=== PATIENT | female | born 1985 | race African-American/Black ===

== ENCOUNTER 2018-04-05 13:13 | Emergency (ER) | payer MEDICAID ==
[~2018-04-05] VITALS: Ht 162.6 cm; Wt 78.5 kg
[~2018-04-05 13:13] MED LIST: AUGMENTIN 875-1 EAC1 ORAL; IBUPROFEN600 MG ORAL; NORCO 5-325 TA1 EACH ORAL
--- NOTE | 2018-04-05 13:41 | Emergency Room Report ---
History of Present Illness General Chief Complaint: Skin Rash/Abscess Source: Patient Present Illness HPI Patient presents with his younger son who appears to have possible ringworm in the scalp area Patient had a lesion to the left lower leg Circular Patient's of the area one to 2 days ago There was some itching to the area Denies any spread denies any chest pain or shortness of breath and eyes any fevers or chills Patient also had 2 areas on the right hand there were somewhat different and reports that the areas in the right hand have come and gone over the past several years Allergies: Coded Allergies: IODINE (Verified Allergy, Unknown, 04/05/18) Patient History Past Medical History: see triage record Pertinent Family History: none Reviewed Nursing Documentation: PMH: Agreed; PSxH: Agreed Nursing Documentation-PMH Past Medical History: No Stated History Review of Systems All Other Systems: negative except mentioned in HPI Physical Exam Vital Signs Date Time Temp Pulse Resp B/P (MAP) Pulse Ox O2 Delivery O2 Flow Rate FiO2 04/05/18 13:22 98.4 95 18 126/79 96 Room Air 98.4 Sp02 EP Interpretation: reviewed, normal General Appearance: well appearing, no apparent distress Head: normocephalic, atraumatic Eyes: bilateral eye PERRL, bilateral eye EOMI ENT: hearing grossly normal, normal pharynx, TMs + canals normal, uvula midline Neck: full range of motion, supple, no meningismus, no bony tend Respiratory: lungs clear, normal breath sounds Cardiovascular #1: regular rate, rhythm Gastrointestinal: non tender, soft Musculoskeletal: normal inspection Neurologic: alert, oriented x3, responsive Skin: warm/dry - There was also to somewhat nonspecific raised small rash over the dorsal hand possible insect bite no obvious fluctuance, other - Circular area with mild demarcated region on the lower extremity approximately half centimeter by half centimeter no raised appearance no fluctuance no dermatomal fashion appearance Lymphatic: no adenopathy Medical Decision Making Diagnostic Impression: Primary Impression: Rash and other nonspecific skin eruption ER Course Patient presents with a localized nonspecific lesion in the lower leg appears to be possibly healed ring warm region no obvious infection at this time does not appear active and patient stable for close outpatient follow-up Last Vital Signs Date Time Temp Pulse Resp B/P (MAP) Pulse Ox O2 Delivery O2 Flow Rate FiO2 04/05/18 13:22 98.4 95 18 126/79 96 Room Air 98.4 Status: unchanged Disposition: HOME, SELF-CARE Condition: Stable Patient Instructions: Rash Additional Instructions: Patient is provided with the discharge instructions notified to follow up with primary doctor in the next 2-3 days otherwise return to the er with any worsening symptoms. Please note that this report is being documented using [employer] technology. This can lead to erroneous entry secondary to incorrect interpretation by the dictating instrument. Vera Barajas DO Apr 05, 2018 13:41
[2018-04-05] MEDS ORDERED: CLOTRIMAZOLE15 GM TOPIC (13:45)
[2018-04-05 14:00] VITALS: BP 126/79
== END 2018-04-05 14:05 | disposition home or self-care (01) ==
LOC: EMR 13:40
DX: R21 Rash and other nonspecific skin eruption (principal)
CPT/HCPCS: 99282

== ENCOUNTER 2018-04-23 18:29 | Emergency (ER) | payer MEDICAID, MEDICARE ==
[~2018-04-23] VITALS: Ht 162.6 cm; Wt 78.5 kg
[~2018-04-23 18:29] MED LIST changes: +CLOTRIMAZOLE15 GM TOPIC
[2018-04-23 18:40] VITALS: BP 123/81
--- NOTE | 2018-04-23 18:59 | Emergency Room Report ---
History of Present Illness General Chief Complaint: Skin Rash/Abscess Source: Patient Present Illness HPI patient is a 32-year-old female with no significant past medical history here complaining of 3 weeks of very pruritic rash on his right hand starting on the left spaces. Reports the pruritus is worse at night. Patient has been scratching the lesions so much now that are blistering. Also complains of a pruritic rash on the left ankle. Denies any other lesion. His pain, fever, chills, or other associated symptoms. Has not tried any topical creams. Denies recent travel or camping. Allergies: Coded Allergies: IODINE (Verified Allergy, Unknown, 04/05/18) Patient History Past Medical History: see triage record Past Surgical History: none Last Menstrual Period: NA Now: No : 4 Para: 3 Immunizations: UTD Reviewed Nursing Documentation: PMH: Agreed; PSxH: Agreed Nursing Documentation-PMH Past Medical History: No History, Except For Review of Systems All Other Systems: negative except mentioned in HPI Physical Exam Vital Signs Date Time Temp Pulse Resp B/P (MAP) Pulse Ox O2 Delivery O2 Flow Rate FiO2 04/23/18 18:33 99.2 74 18 123/81 99 Room Air 99.1 Sp02 EP Interpretation: reviewed, normal General Appearance: normal inspection, well appearing, no apparent distress, alert Head: normocephalic, atraumatic Eyes: bilateral eye normal inspection, bilateral eye PERRL ENT: normal ENT inspection, hearing grossly normal, normal pharynx Neck: normal inspection, full range of motion, supple Respiratory: normal inspection, chest non-tender, lungs clear, normal breath sounds, no rhonchi Cardiovascular #1: normal inspection, regular rate, rhythm, no murmur Gastrointestinal: normal inspection, soft Rectal: deferred Genitourinary: deferred Musculoskeletal: normal inspection, back normal, other - tinea corporis left ankle, scabies on right hand Neurologic: normal inspection, alert, oriented x3 Psychiatric: normal inspection, judgement/insight normal Skin: normal color, warm/dry, rash - tinea corporis left ankle, scabies right hand Lymphatic: normal inspection, no adenopathy Medical Decision Making PA Attestation All diagnoses and treatment plans were reviewed and discussed with my supervising physician Diagnostic Impression: Primary Impression: Tinea corporis Additional Impression: Scabies ER Course patient is a 32-year-old female with no significant past medical history here complaining of 3 weeks of very pruritic rash on his right hand starting on the left spaces. Reports the pruritus is worse at night. Patient has been scratching the lesions so much now that are blistering. Also complains of a pruritic rash on the left ankle. Denies any other lesion. His pain, fever, chills, or other associated symptoms. Has not tried any topical creams. Denies recent travel or camping. Ddx considered but are not limited to tinea corporis, eczema, scabies Vital signs: are WNL, pt. is afebrile H&PE are most consistent with tinea corporis, scabies ORDERS: permetherin, lotrisione ED INTERVENTIONS: None required at this time. DISCHARGE: At this time pt. is stable for d/c to home. Will provide printed patient care instructions, and any necessary prescriptions. Care plan and follow up instructions have been discussed with the patient prior to discharge. Last Vital Signs Date Time Temp Pulse Resp B/P (MAP) Pulse Ox O2 Delivery O2 Flow Rate FiO2 04/23/18 18:33 99.2 74 18 123/81 99 Room Air 99.1 Disposition: HOME, SELF-CARE Condition: Stable Scripts Clotrimazole/Betamethasone Dip* (LOTRISONE CREAM*) 15 Gm Cream..g. 1 GM TP TWICE A DAY for 10 Days, #1 TUBE 0 Refills Prov: Savage Reese P.AAlison 04/23/18 Permethrin (PERMETHRIN) 1 Gm Liquid 1 GM TP ONCE for 7 Days, #1 TUBE Prov: Savage Reese.AAlison 04/23/18 Patient Instructions: Body Ringworm, Scabies, Pediatric Additional Instructions: follow up with pcp for further evaluation. Savage Reese Apr 23, 2018 18:59
[2018-04-23] MEDS ORDERED: LOTRISONE CREAM15 GM TP (19:01)
[2018-04-23] MEDS ORDERED: PERMETHRIN1 GM TP (19:01)
[2018-04-23 19:16] VITALS: BP 111/71
== END 2018-04-23 19:17 | disposition home or self-care (01) ==
LOC: EMR 19:11
DX: B35.4 Tinea corporis (principal); B86 Scabies
CPT/HCPCS: 99283

== ENCOUNTER 2019-04-06 00:29 | Emergency (ER) | payer MEDICARE, OTHER ==
[~2019-04-06] VITALS: Ht 162.6 cm; Wt 68.0 kg
[~2019-04-06 00:29] MED LIST changes: +LOTRISONE CREAM15 GM TP; +PERMETHRIN1 GM TP
[2019-04-06 00:41] VITALS: BP 125/86
--- NOTE | 2019-04-06 00:44 | NUR ---
ED Nurse Note: Pt ambulated to ED from home c/o swelling, itching and tingling in left hand and fingers r/t cleaning shrimp. Pt is allergic to shellfish and doesn't eat it but cleaning the shrimp caused this tingling and swelling in her hand. VSS
[2019-04-06] MEDS ORDERED: BENADRYL25 MG ORAL (00:54)
--- NOTE | 2019-04-06 00:55 | Emergency Room Report ---
History of Present Illness General Chief Complaint: Allergic Reaction Source: Patient Present Illness HPI Is a 33-year-old female with a history of allergy to shrimp. She was cleaning strip and she developed itching and swelling to her left ring finger. A was itching going up her left arm also. This occurred just prior to arrival. Better now. Did not take it before. No wrist or complaint. Denies any other injury. Allergies: Coded Allergies: IODINE (Verified Allergy, Unknown, 04/05/18) Uncoded Allergies: SHELLFISH (Allergy, Unknown, 04/06/19) Patient History Past Medical History: see triage record, old chart reviewed Past Surgical History: other Pertinent Family History: none Social History: Denies: smoking Last Menstrual Period: na Now: No Immunizations: other Reviewed Nursing Documentation: PMH: Agreed; PSxH: Agreed Nursing Documentation-PMH Past Medical History: No Stated History Review of Systems Eye: Denies: eye pain, blurred vision ENT: Denies: ear pain, nose congestion, throat swelling Respiratory: Denies: cough, shortness of breath Cardiovascular: Denies: chest pain, palpitations Gastrointestinal: Denies: abdominal pain, diarrhea, nausea, vomiting Musculoskeletal: Denies: back pain, joint pain Skin: Denies: rash Neurological: Denies: headache, numbness Endocrine: Denies: increased thirst, increased urine Hematologic/Lymphatic: Denies: easy bruising All Other Systems: negative except mentioned in HPI Physical Exam Vital Signs Date Time Temp Pulse Resp B/P (MAP) Pulse Ox O2 Delivery O2 Flow Rate FiO2 04/06/19 00:32 97.9 60 18 131/87 (102) 99 Room Air Vitals normal Sp02 EP Interpretation: reviewed, normal General Appearance: well appearing, no apparent distress, alert Head: normocephalic, atraumatic Eyes: bilateral eye PERRL, bilateral eye EOMI ENT: hearing grossly normal, normal pharynx Neck: full range of motion, supple, no meningismus Respiratory: chest non-tender, lungs clear, normal breath sounds Cardiovascular #1: regular rate, rhythm, no murmur Gastrointestinal: normal bowel sounds, non tender, no mass, no organomegaly, no bruit, non-distended Musculoskeletal: back normal, gait/station normal, normal range of motion, other - Mild edema to left ring finger. Psychiatric: mood/affect normal Medical Decision Making Diagnostic Impression: Primary Impression: Allergic reaction Qualified Codes: T78.40XA - Allergy, unspecified, initial encounter ER Course Presents with allergic reaction. No evidence of systemic spread. Better after medication. Will discharge home. Last Vital Signs Date Time Temp Pulse Resp B/P (MAP) Pulse Ox O2 Delivery O2 Flow Rate FiO2 04/06/19 00:41 97.9 80 18 125/86 99 Room Air Status: improved Disposition: HOME, SELF-CARE Condition: Stable Scripts Diphenhydramine Hcl* (BENADRYL*) 25 Mg Capsule 50 MG ORAL Q6H PRN for Itching, #30 CAP Prov: Cristofer Dowling MD 04/06/19 Patient Instructions: Food Allergy Additional Instructions: Follow up your doctor in 7 days. Return if symptoms worsen. Cristofer Dowling MD Apr 06, 2019 00:55
[2019-04-06 01:06] VITALS: BP 125/86
--- NOTE | 2019-04-06 01:06 | NUR ---
ER DISCHARGE NOTE: Patient is cleared to be discharged per ERMD, pt is aox4, on room air, with stable vital signs. pt was given dc and prescription instructions, pt was able to verbalize understanding, pt id band removed. pt is able to ambulate with steady gait. pt took all belongings.ED Nurse Note:
== END 2019-04-06 01:06 | disposition home or self-care (01) ==
LOC: EMR 01:00
DX: T78.40XA Allergy, unspecified, initial encounter (principal); X58.XXXA Exposure to other specified factors, initial encounter; Z88.8 Allergy status to other drugs, medicaments and biological substances; Z91.013 Allergy to seafood
CPT/HCPCS: 99282; J7512